=== PATIENT | male | born 1990 | race Caucasian/White ===

== ENCOUNTER 2022-05-16 07:48 | Emergency (ER) | payer OTHER ==
[~2022-05-16] VITALS: Ht 180.3 cm; Wt 100.0 kg
[2022-05-16] MEDS ORDERED: NS 1,000 ML IV ONE (08:40)
[2022-05-16] MEDS ORDERED: ISOVUE-370 76% 100ML VIAL As Ordered ONE (09:21)
[2022-05-16 09:35] LABS: BASO % 0.5 % (0.0-1.0); EOS # 0.3 10^3/uL (0.0-0.5); EOS % 5.6 % (0.0-3.0); HEMATOCRIT 49.2 % (42.0-52.0); HEMOGLOBIN 15.6 g/dl (13.5-17.5); LYMPH # 1.9 10^3/uL (1.5-5.0); LYMPH % 34.2 % (24.0-44.0); MEAN CORPUSCULAR HEMOGLOBIN 28.3 pg (27.0-33.0); MEAN CORPUSCULAR HGB CONC 31.7 g/dl (32.0-36.5); MEAN CORPUSCULAR VOLUME 89.3 fl (80.0-96.0); MONO # 0.6 10^3/uL (0.0-0.8); MONO % 11.2 % (2.0-8.0); NEUTROPHILS # 2.7 10^3/uL (1.5-8.5); PLATELET COUNT, AUTOMATED 286 10^3/uL (150-450); RED BLOOD COUNT 5.51 10^6/uL (4.30-6.10); WHITE BLOOD COUNT 5.5 10^3/uL (4.0-10.0)
[2022-05-16 10:17] LABS: RSV AMPLIFICATION NEGATIVE (NEGATIVE)
[2022-05-16 10:25] LABS: ALBUMIN 3.7 G/DL (3.2-5.2); BILIRUBIN,DIRECT 0.1 MG/DL (<0.4); BILIRUBIN,TOTAL 0.2 MG/DL (0.3-1.2)
[2022-05-16 13:51] VITALS: BP 132/64
[2022-05-16 18:19] LABS: TOTAL PROTEIN 7.1 G/DL (5.7-8.2)
== END 2022-05-16 13:55 | disposition home or self-care (01) ==
LOC: M ED 07:48
DX: A08.39 Other viral enteritis (principal); K52.9 Noninfective gastroenteritis and colitis, unspecified; D18.09 Hemangioma of other sites; R19.7 Diarrhea, unspecified; R16.0 Hepatomegaly, not elsewhere classified; F17.200 Nicotine dependence, unspecified, uncomplicated
CPT/HCPCS: 74177; 80047; 80076; 82150; 83605; 83690; 85025; 87507; 87631; 96360; 96361; 99284; Q9967

== ENCOUNTER → 2022-06-23 | Outpatient (CLI) | payer OTHER ==
[~2022-06-23] MED LIST: PROHANCE 279.3MG/ML 15ML VIAL ONE; PROHANCE 279.3MG/ML 5ML VIAL ONE
== END ==
LOC: M PLAIMG 09:29
PROVIDERS: ATTEND Physician Assistant
DX: K76.9 Liver disease, unspecified (principal)
CPT/HCPCS: 74183; A9576